=== PATIENT | male | born 1945 | race Caucasian/White ===

== ENCOUNTER 2020-09-15 13:07 | Emergency (ER) | payer MEDICARE, OTHER ==
[~2020-09-15] VITALS: Ht 180 cm; Wt 79.0 kg
--- NOTE | 2020-09-15 13:26 | ED GU-Female ---
General Chief Complaint: - Urinary Stated Complaint: KIDNEY STONES Source: patient Exam Limitations: no limitations History of Present Illness Date Seen by Provider: September 15, 2020 Time Seen by Provider: 13:23 Initial Comments To ER with right flank pain that awakened him at about 4 AM this morning. [place] then went to the farm and did some work and had progression of pain. No nausea or vomiting. History of kidney stones about 15 years ago when he takes allopu rinol for that. He follows with Dr. Son but does not have a primary care provider. Timing/Duration: this morning Severity/Quality: moderate Location: right flank Radiation: none Activities at Onset: none Prior Genitourinary Problems: none Associated Symptoms: denies symptoms Allergies and Home Medications Allergies Coded Allergies: No Known Drug Allergies (Unverified , 09/15/20) Patient Home Medication List Home Medication List Reviewed: Yes Review of Systems Review of Systems Constitutional: see HPI EENTM: see HPI Respiratory: no symptoms reported Cardiovascular: no symptoms reported Genitourinary: see HPI Musculoskeletal: no symptoms reported Skin: no symptoms reported Psychiatric/Neurological: No Symptoms Reported Endocrine: No Symptoms Reported Hematologic/Lymphatic: No Symptoms Reported Physical Exam Vital Signs Vital Signs - First Documented 09/15/20 13:15 Temp 35.8 Pulse 89 Resp 18 B/P (MAP) 177/100 (125) Pulse Ox 97 O2 Delivery Room Air Capillary Refill : Height, Weight, BMI Height: '" Weight: lbs. oz. kg; BMI Method: General Appearance: WD/WN, no apparent distress HEENT: PERRL/EOMI, normal ENT inspection Neck: non-tender, full range of motion Respiratory: normal breath sounds, no respiratory distress, no accessory muscle use Gastrointestinal: normal bowel sounds, soft, tenderness Back: CVA tenderness (R) Extremities: normal range of motion, non-tender Neurologic/Psychiatric: alert, normal mood/affect, oriented x 3 Skin: normal color, warm/dry Progress/Results/Core Measures Suspected Sepsis SIRS Temperature: Pulse: Respiratory Rate: Laboratory Tests 09/15/20 13:20: White Blood Count 13.4H Blood Pressure / Mean: Laboratory Tests 09/15/20 13:20: Creatinine 1.33H, Platelet Count 153 Results/Orders Lab Results Laboratory Tests Test 09/15/20 13:20 Range/Units White Blood Count 13.4 H 4.3-11.0 10^3/uL Red Blood Count 5.53 H 4.30-5.52 10^6/uL Hemoglobin 17.2 13.3-17.7 g/dL Hematocrit 49 40-54 % Mean Corpuscular Volume 89 80-99 fL Mean Corpuscular Hemoglobin 31 25-34 pg Mean Corpuscular Hemoglobin Concent 35 32-36 g/dL Red Cell Distribution Width 12.9 10.0-14.5 % Platelet Count 153 130-400 10^3/uL Mean Platelet Volume 10.2 9.0-12.2 fL Immature Granulocyte % (Auto) 0 % Neutrophils (%) (Auto) 88 H 42-75 % Lymphocytes (%) (Auto) 5 L 12-44 % Monocytes (%) (Auto) 6 0-12 % Eosinophils (%) (Auto) 0 0-10 % Basophils (%) (Auto) 0 0-10 % Neutrophils # (Auto) 11.7 H 1.8-7.8 10^3/uL Lymphocytes # (Auto) 0.7 L 1.0-4.0 10^3/uL Monocytes # (Auto) 0.9 0.0-1.0 10^3/uL Eosinophils # (Auto) 0.0 0.0-0.3 10^3/uL Basophils # (Auto) 0.1 0.0-0.1 10^3/uL Immature Granulocyte # (Auto) 0.1 0.0-0.1 10^3/uL Neutrophils % (Manual) 82 % Lymphocytes % (Manual) 6 % Monocytes % (Manual) 6 % Eosinophils % (Manual) 0 % Basophils % (Manual) 0 % Band Neutrophils 6 % Blood Morphology Comment NORMAL Urine Color YELLOW Urine Clarity CLEAR Urine pH 5.0 5-9 Urine Specific [place] 1.020 1.016-1.022 Urine Protein NEGATIVE NEGATIVE Urine Glucose (UA) 3+ H NEGATIVE Urine Ketones TRACE H NEGATIVE Urine Nitrite NEGATIVE NEGATIVE Urine Bilirubin NEGATIVE NEGATIVE Urine Urobilinogen 0.2 < = 1.0 MG/DL Urine Leukocyte Esterase NEGATIVE NEGATIVE Urine RBC (Auto) 3+ H NEGATIVE Urine RBC 50-100 H /HPF Urine WBC NONE /HPF Urine Squamous Epithelial Cells RARE /HPF Urine Crystals NONE /LPF Urine Bacteria NEGATIVE /HPF Urine Casts NONE /LPF Urine Mucus SMALL H /LPF Urine Culture Indicated NO Sodium Level 135 135-145 MMOL/L Potassium Level 4.3 3.6-5.0 MMOL/L Chloride Level 102 98-107 MMOL/L Carbon Dioxide Level 25 21-32 MMOL/L Anion Gap 8 5-14 MMOL/L Blood Urea Nitrogen 18 7-18 MG/DL Creatinine 1.33 H 0.60-1.30 MG/DL Estimat Glomerular Filtration Rate 53 BUN/Creatinine Ratio 14 Glucose Level 337 H 70-105 MG/DL Calcium Level 9.3 8.5-10.1 MG/DL My Orders Orders - VISHAL PERES APRN Abdomen/Kub 1view (09/15/20 13:21) Ct Abd/Pelvis Wo(Kidney Stone) (09/15/20 13:21) Cbc With Automated Diff (09/15/20 13:21) Basic Metabolic Panel (09/15/20 13:21) Ua Culture If Indicated (09/15/20 13:21) Ed Iv/Invasive Line Start (09/15/20 13:21) Clonidine Tablet (Catapres Tablet) (09/15/20 13:30) Lactated Ringers (Lr 1000 Ml Iv Solution (09/15/20 13:30) Ketorolac Injection (Toradol Injection) (09/15/20 13:30) Manual Differential (09/15/20 13:20) Medications Given in ED Current Medications Medications Dose Ordered Sig/Drew Route Start Time Stop Time Status Last Admin Dose Admin Clonidine HCl 0.1 mg ONCE ONCE PO 09/15/20 13:30 09/15/20 13:31 DC 09/15/20 13:28 0.1 MG Ketorolac Tromethamine 15 mg ONCE ONCE IVP 09/15/20 13:30 09/15/20 13:31 DC 09/15/20 13:28 15 MG Vital Signs/I&O 09/15/20 13:15 Temp 35.8 Pulse 89 Resp 18 B/P (MAP) 177/100 (125) Pulse Ox 97 O2 Delivery Room Air Capillary Refill : Departure Impression Primary Impression: Diabetes Additional Impressions: CKD (chronic kidney disease) Right ureteral calculus Hypertension Disposition: HOME, SELF-CARE Condition: Stable Departure-Patient Inst. Decision time for Depature: 13:54 Referrals: JASWANT PATTERSON MD, ELIAS A MD (PCP/Family) Primary Care Physician Patient Instructions: Kidney Stone, Adult ED Add. Discharge Instructions: 1. Return to ER for any concerns. Support and to follow-up with primary care to start some treatment for the high blood sugar and high blood pressure All discharge instructions reviewed with patient and/or family. Voiced understanding. Scripts Hydrocodone/Acetaminophen (Hydrocodone-Acetamin 5-325 mg) 1 Each Tablet 1 TAB PO Q4H PRN for PAIN-MODERATE (5-7), #14 TAB Prov: VISHAL PERES APRN 09/15/20 Tamsulosin HCl (Flomax) 0.4 Mg Cap 0.4 MG PO DAILY, #10 CAP Prov: VISHAL PERES APRN 09/15/20 Copy Copies To 1: BIA SON MD, PETER J APRN September 15, 2020 13:26
[2020-09-15 13:30] LABS: BASOPHILS # (AUTO) 0.1 10^3/uL (0.0-0.1); BASOPHILS % (AUTO) 0 % (0-10); BILIRUBIN,URINE NEGATIVE (NEGATIVE); CLARITY,URINE CLEAR; COLOR,URINE YELLOW; EOSINOPHILS % (AUTO) 0 % (0-10); GLUCOSE, URINE (UA) 3+ (NEGATIVE); HEMATOCRIT 49 % (40-54); HEMOGLOBIN 17.2 g/dL (13.3-17.7); KETONES,URINE TRACE (NEGATIVE); LEUKOCYTE ESTERASE ,URINE NEGATIVE (NEGATIVE); LYMPHOCYTES # (AUTO) 0.7 10^3/uL (1.0-4.0); LYMPHOCYTES % (AUTO) 5 % (12-44); MEAN CORPUSCULAR HEMOGLOBIN 31 pg (25-34); MEAN CORPUSCULAR HGB CONC 35 g/dL (32-36); MEAN CORPUSCULAR VOLUME 89 fL (80-99); MEAN PLATELET VOLUME 10.2 fL (9.0-12.2); MONOCYTES # (AUTO) 0.9 10^3/uL (0.0-1.0); MONOCYTES % (AUTO) 6 % (0-12); NEUTROPHILS # (AUTO) 11.7 10^3/uL (1.8-7.8); NEUTROPHILS % (AUTO) 88 % (42-75); NITRITE,URINE NEGATIVE (NEGATIVE); PLATELET COUNT 153 10^3/uL (130-400); PROTEIN,URINE NEGATIVE (NEGATIVE); WHITE BLOOD COUNT 13.4 10^3/uL (4.3-11.0)
[2020-09-15] MEDS ORDERED: LACTATED RINGERS 1,000 ML IV SCH (13:30)
[2020-09-15] MEDS ORDERED: cloNIDine 0.1 MG (CATAPRES) TAB PO ONE (13:30)
[2020-09-15] MEDS ORDERED: KETOROLAC 30 MG/ML VIAL IVP ONE (13:30)
[2020-09-15 13:43] LABS: RBC,URINE 50-100 /HPF
[2020-09-15 13:44] LABS: BACTERIA,URINE NEGATIVE /HPF; CALCIUM 9.3 MG/DL (8.5-10.1); CREATININE SERUM 1.33 MG/DL (0.60-1.30); POTASSIUM 4.3 MMOL/L (3.6-5.0); SQUAMOUS EPITHELIAL CELL,UR RARE /HPF
[2020-09-15 13:59] LABS: BAND NEUTROPHILS 6 %; BASOPHILS % (MANUAL) 0 %; EOSINOPHILS % (MANUAL) 0 %; LYMPHOCYTES % (MANUAL) 6 %; MONOCYTES % (MANUAL) 6 %; NEUTROPHILS % (MANUAL) 82 %
[2020-09-15 14:00] LABS: RBC MORPH NORMAL
--- NOTE | 2020-09-15 14:10 | Diagnostic Imaging Report ---
Indication: Right flank pain KUB 2:03 PM Bowel gas pattern is normal. There are no pathologic masses or calcifications. IMPRESSION: No acute abnormalities in the abdomen Dictated by: Dictated on workstation # [id number]
--- NOTE | 2020-09-15 14:17 | Diagnostic Imaging Report ---
PROCEDURE: CT urinary tract, rule out kidney stone. TECHNIQUE: Multiple contiguous axial images were obtained through the abdomen and pelvis without the use of intravenous contrast. Auto Exposure Controls were utilized during the CT exam to meet ALARA standards for radiation dose reduction. INDICATION: Right flank pain. COMPARISON: Study compared 12/06/2006. FINDINGS: A 2.2 mm calculus is present at the most distal aspect of the right ureterovesical junction. It is nearly passed into the lumen of the bladder. It results in mild upstream right-sided hydroureteronephrosis with mild perinephric and periureteric stranding of the fat. No fluid collection. The left kidney is unobstructed with a large upper pole cyst measuring 6.6 cm previously 4.6 cm. There is a punctate nonobstructing stone within the upper pole calyx measuring 1-2 mm on the left. No additional right-sided stones. Small right upper pole cortical cyst is noted. Liver, bile ducts, spleen, adrenals and pancreas are negative. The aorta is atherosclerotic but nonaneurysmal. There is no appendicitis or diverticulitis. There are gallstones without gallbladder dilatation or biliary ductal distention. IMPRESSION: A 2.2 mm stone in the distal right UVJ resulting in mild upstream hydronephrosis. Punctate nonobstructing left renal calculus. Left greater than right renal cysts noted. Cholelithiasis. Dictated by: Dictated on workstation # [id number]
[2020-09-15] MEDS ORDERED: TMSL.4C PO (14:35)
[2020-09-15] MEDS ORDERED: ACHD5005 PO (14:35)
[2020-09-15 14:43] VITALS: BP 149/97
== END 2020-09-15 14:43 | disposition home or self-care (01) ==
LOC: EDUNIT# 13:07 → ER 13:09
DX: E11.22 Type 2 diabetes mellitus with diabetic chronic kidney disease (principal); I12.9 Hypertensive chronic kidney disease with stage 1 through stage 4 chronic kidney disease, or unspecified chronic kidney disease; N18.9 Chronic kidney disease, unspecified; N13.2 Hydronephrosis with renal and ureteral calculous obstruction
CPT/HCPCS: 36415; 74018; 74176; 80048; 81000; 85007; 85027